=== PATIENT | female | born 1980 | race Asian ===

== ENCOUNTER 2016-11-16 11:34 | Outpatient (CLI) | payer BC ==
[2016-11-16 12:19] LABS: CALCIUM, SERUM 9.4 mg/dL (8.5-10.1); CREATININE 0.6 mg/dL (0.6-1.3); POTASSIUM 3.9 mmol/L (3.5-5.1)
[2016-11-16] MEDS ORDERED: GADOVERSETAMIDE 5 MMOL/10 ML VIAL IJ ONE (13:56)
== END 2016-11-16 23:59 | disposition home or self-care (01) ==
LOC: MRI 11:34
PROVIDERS: ATTEND Legal Medicine
DX: Z00.00 Encounter for general adult medical examination without abnormal findings (principal)
CPT/HCPCS: 36415; 72158; 80048; A9579